=== PATIENT | female | born 1955 | race Caucasian/White ===

== ENCOUNTER 2018-05-25 06:27 | Inpatient (IN) | payer BC ==
[~2018-05-25] VITALS: Ht 170.2 cm; Wt 98.0 kg
[~2018-05-25 06:27] MED LIST: AMLO10TA80 PO; CALC-30 PO; CHOL200059 PO; HYDR-4009 PO; LEVO50TA8 PO; RANI150C12 PO; TURM538C PO
[2018-05-25] MEDS ORDERED: LACTATED RINGERS 1,000 ML IV SCH (08:15)
[2018-05-25] MEDS ORDERED: TRANEXAMIC ACID 1,000 MG/10 ML IV ONE (09:15)
[2018-05-25] MEDS ORDERED: TRANEXAMIC ACID 1,000 MG in SODIUM CHLORIDE 0.9% 100 ML IV NR (09:30)
[2018-05-25] MEDS ORDERED: BUPIVACAINE/EPINEPH/PF 0.25%/0.0005 10ML ONE ×2 (09:33→14:06)
[2018-05-25] MEDS ORDERED: EPINEPHRINE 1:1000 1 MG/ML AMP ONE ×2 (09:33→14:17)
[2018-05-25] MEDS ORDERED: BACITRACIN 50,000 UNITS/VIAL ONE (09:34)
[2018-05-25] MEDS ORDERED: VANCOMYCIN HCL 500 MG/VIAL ONE (09:34)
[2018-05-25] MEDS ORDERED: NORMAL SALINE 0.9% 10 ML SYR ONE (09:34)
[2018-05-25] MEDS ORDERED: MORPHINE SULFATE/PF 1MG/ML 10ML AMP ONE ×2 (09:43→14:06)
[2018-05-25] MEDS ORDERED: BUPIVACAINE HCL/DEXTROSE/PF 0.75% 2ML AMP INJ ONE (10:16)
[2018-05-25] MEDS ORDERED: PROPOFOL 10MG/ML 100ML 200 ML IV ONE (10:18)
[2018-05-25] MEDS ORDERED: FENTANYL CITRATE/PF 50MCG/ML 2ML VIAL ONE ×2 (10:20→12:14)
[2018-05-25] MEDS ORDERED: MIDAZOLAM HCL 2 MG/2 ML VIAL ONE ×3 (10:20→14:50)
[2018-05-25] MEDS ORDERED: PHENYLEPHRINE HCL 10 MG/ML 1ML (IV VIAL) IV ONE (11:43)
[2018-05-25] MEDS ORDERED: LIDOCAINE HCL/PF 1% 10 MG/ML 5ML VIAL ONE (11:43)
[2018-05-25] MEDS ORDERED: HYDROMORPHONE HCL/PF 2MG/ML (OR) ONE (12:49)
[2018-05-25] MEDS ORDERED: LABETALOL HCL 5MG/ML VIAL 20ML IV ONE (13:04)
[2018-05-25] MEDS ORDERED: PROPOFOL 10MG/ML 100ML 100 ML IV ONE (13:09)
[2018-05-25] MEDS ORDERED: ONDANSETRON HCL 4MG/2ML INJ IV PRN (15:30)
[2018-05-25] MEDS ORDERED: MAGNESIUM HYDROXIDE 400MG/5ML 30ML UDC PO PRN (15:30)
[2018-05-25 18:38] VITALS: BP 111/59
[2018-05-25 20:00] VITALS: BP 101/48
[2018-05-25] MEDS: CLINDAMYCIN 900 MG in DEXTROSE 5% WATER 50 ML IV SCH (22:09)
[2018-05-25] MEDS: ZOLPIDEM TARTRATE 5MG TABLET PO PRN (22:09)
[2018-05-26] VITALS: BP 104/46
[2018-05-26] MEDS: ACETAMINOPHEN 325MG TABLET PO PRN (02:40)
[2018-05-26] MEDS: CLINDAMYCIN 900 MG in DEXTROSE 5% WATER 50 ML IV SCH (02:41)
[2018-05-26] MEDS ORDERED: DIPHENHYDRAMINE INJ IV PRN (03:00)
[2018-05-26 04:00] VITALS: BP 120/64
[2018-05-26] MEDS: HYDROMORPHONE HCL/PF 2MG/ML CPJ IV PRN ×2 (04:36→07:40)
[2018-05-26] MEDS ORDERED: ONDANSETRON INJ IV PRN (06:00)
[2018-05-26] MEDS ORDERED: NALOXONE INJ IV PRN (06:00)
[2018-05-26] MEDS: MORPHINE PCA 50MG/50ML IV PRN (06:39)
[2018-05-26] MEDS ORDERED: PROPOFOL 10MG/ML 100ML 100 ML IV ONE (07:27)
[2018-05-26] MEDS ORDERED: ENOXAPARIN 40MG/0.4ML SYR SUBCUT SCH (09:00)
[2018-05-26] MEDS: DOCUSATE SODIUM 100MG CAPSULE PO SCH ×2 (09:11→17:37)
[2018-05-26 10:47] LABS: BASOPHILS % 0.1 % (0.0-2.0); EOSINOPHILS % 0.1 % (0.0-5.0); HEMATOCRIT. 30.1 % (36.0-48.0); HEMOGLOBIN. 10.1 g/dL (12.0-16.0); LYMPHOCYTES % 8.6 % (20.0-50.0); MEAN CORPUSCULAR HEMOGLOBIN 32.2 pg (28.0-32.0); MEAN CORPUSCULAR VOLUME 96.1 fL (81.0-99.0); MEAN PLATELET VOLUME 8.9 fl (7.4-10.4); MONOCYTES % 8.9 % (2.0-8.0); NEUTROPHILS % 82.3 % (40.0-76.0); PLATELET 168 x1000/uL (130-400); RED BLOOD CELL COUNT 3.14 mill/uL (4.2-5.4); RED CELL DISTRIBUTION WIDTH 13.7 % (11.6-14.6)
[2018-05-26 11:04] LABS: CHLORIDE 100 mEq/L (98-107)
[2018-05-26] MEDS ORDERED: CLONIDINE 0.1MG TABLET PO PRN (13:00)
[2018-05-26] MEDS: FAMOTIDINE 20MG TABLET PO SCH ×2 (15:06→22:03)
[2018-05-26] MEDS: ENOXAPARIN 30MG/0.3ML SYR SUBCUT SCH ×2 (15:07→22:03)
[2018-05-26 20:00] VITALS: BP 112/42
[2018-05-27] VITALS: BP 122/58
[2018-05-27] MEDS: ZOLPIDEM TARTRATE 5MG TABLET PO PRN (02:27)
[2018-05-27 04:00] VITALS: BP 117/51
[2018-05-27] MEDS: MORPHINE PCA 50MG/50ML IV PRN (04:39)
[2018-05-27] MEDS: ACETAMINOPHEN 325MG TABLET PO PRN (05:27)
[2018-05-27 07:00] VITALS: BP 98/56
[2018-05-27] MEDS: DOCUSATE SODIUM 100MG CAPSULE PO SCH ×2 (08:32→17:00)
[2018-05-27] MEDS: FAMOTIDINE 20MG TABLET PO SCH (08:32)
[2018-05-27] MEDS: ENOXAPARIN 30MG/0.3ML SYR SUBCUT SCH (08:33)
[2018-05-27] MEDS ORDERED: HYDROCODONE/ACETAMINOPHEN 5/325MG TABLET PO PRN (10:00)
[2018-05-27 11:58] LABS: BASOPHILS % 0.4 % (0.0-2.0); HEMATOCRIT. 29.8 % (36.0-48.0); HEMOGLOBIN. 10.1 g/dL (12.0-16.0); LYMPHOCYTES % 11.9 % (20.0-50.0); MEAN CORPUSCULAR HEMOGLOBIN 32.3 pg (28.0-32.0); MEAN CORPUSCULAR VOLUME 95.5 fL (81.0-99.0); MEAN PLATELET VOLUME 9.1 fl (7.4-10.4); MONOCYTES % 8.7 % (2.0-8.0); PLATELET 182 x1000/uL (130-400); RED BLOOD CELL COUNT 3.12 mill/uL (4.2-5.4); RED CELL DISTRIBUTION WIDTH 13.5 % (11.6-14.6)
[2018-05-27] MEDS: HYDROCODONE/ACETAMINOPHEN 5/325MG TABLET PO PRN ×2 (12:25→19:44)
[2018-05-27 15:45] VITALS: BP 102/61
[2018-05-27 20:00] VITALS: BP 103/61
[2018-05-28] VITALS: BP 107/50
[2018-05-28] MEDS: FAMOTIDINE 20MG TABLET PO SCH ×2 (00:56→08:35)
[2018-05-28] MEDS: HYDROCODONE/ACETAMINOPHEN 5/325MG TABLET PO PRN ×2 (00:57→08:41)
[2018-05-28] MEDS: ENOXAPARIN 30MG/0.3ML SYR SUBCUT SCH ×2 (00:57→08:35)
[2018-05-28 04:00] VITALS: BP 113/56
[2018-05-28 08:00] VITALS: BP 143/69
[2018-05-28] MEDS: DOCUSATE SODIUM 100MG CAPSULE PO SCH (08:35)
[2018-05-28 09:36] VITALS: BP 143/69
[2018-05-28 12:00] VITALS: BP 113/58
== END 2018-05-28 13:30 | disposition home health service (06) | DRG 470 ==
LOC: OR 06:27 → 6EST 17:30
PROVIDERS: ADMIT Orthopaedic Surgery; ATTEND Internal Medicine
PROC: 0SRB04A Replacement of Left Hip Joint with Ceramic on Polyethylene Synthetic Substitute, Uncemented, Open Approach (ICD-10-PCS; principal; 2018-05-25)
DX: M16.12 Unilateral primary osteoarthritis, left hip (principal); M65.9 Synovitis and tenosynovitis, unspecified; E78.5 Hyperlipidemia, unspecified; I10 Essential (primary) hypertension; E03.9 Hypothyroidism, unspecified; E66.9 Obesity, unspecified; G89.29 Other chronic pain; Z88.0 Allergy status to penicillin; Z90.710 Acquired absence of both cervix and uterus; Z68.33 Body mass index [BMI] 33.0-33.9, adult
CPT/HCPCS: 36415; 73501; 73502; 80048; 86850; 86900; 88304; 88311; 97116; 97163; 97166; 97530; 97535; C1776; J0171; J1170; J1650; J2250; J2270; J2274; J2370; J2704; J3010; J3370; J3490; J7040; J7050; J7060